=== PATIENT | female | born 1945 | race Caucasian/White ===

== ENCOUNTER 2021-06-25 10:50 | Outpatient (CLI) | payer MEDICARE | END 2021-06-25 10:51 | disposition home or self-care (01) | LOC: CSHMAMMO 10:50 | PROVIDERS: ATTEND Family Medicine | DX: Z12.31 Encounter for screening mammogram for malignant neoplasm of breast (principal) | CPT/HCPCS: 77063; 77067 ==

== ENCOUNTER 2022-08-21 15:25 | Outpatient (CLI) | payer MEDICARE | END 2022-08-21 15:26 | disposition home or self-care (01) | LOC: CSHMAMMO 15:25 | PROVIDERS: ATTEND Family Medicine | DX: Z12.31 Encounter for screening mammogram for malignant neoplasm of breast (principal); N63.10 Unspecified lump in the right breast, unspecified quadrant; N63.20 Unspecified lump in the left breast, unspecified quadrant | CPT/HCPCS: 77063; 77067 ==